=== PATIENT | female | born 1985 | race American Indian/Alaskan Native ===

== ENCOUNTER 2017-03-20 14:59 | Emergency (ER) | payer BC, MEDICAID ==
[2017-03-20 15:55] VITALS: BP 127/62
[2017-03-20 16:20] LABS: CHLORIDE,CL 104 mmol/L (101-111); SODIUM,NA 137 mmol/L (135-145)
[2017-03-20] MEDS ORDERED: Iopamidol 612 MG/ML 100 ML Bottle IVPUSH ONE (16:26)
[2017-03-20] MEDS ORDERED: Ondansetron 4 MG/2 ML SDV IV ONE (16:28)
[2017-03-20] MEDS ORDERED: Sodium Chloride 0.9% 1,000 ML IV ONE ×2 (16:28→18:09)
[2017-03-20] MEDS ORDERED: Iopamidol 612 MG/ML 50 ML SDV IVPUSH ONE (16:30)
[2017-03-20] MEDS ORDERED: Iopamidol 612 MG/ML 75 ML Bottle IVPUSH ONE (16:34)
[2017-03-20] MEDS ORDERED: HYDROmorphone 1 MG/ML Syringe IVPUSH ONE ×2 (17:04→18:09)
--- NOTE | 2017-03-20 18:24 | EDM.PDOC ---
Scribed by Alycia Seymour 03/20/17 1823 for Teodoro Sánchez PA ED HPI GENERAL MEDICAL PROBLEM - General Chief Complaint: Abdominal Pain Stated Complaint: [id number] STOMACH PAIN APPENDIX? Time Seen by Provider: 03/20/17 16:15 Source of Information: Reports: Patient, RN, RN Notes Reviewed History Limitations: Reports: No Limitations - History of Present Illness INITIAL COMMENTS - FREE TEXT/NARRATIVE: Pain started at 9 a.m. today. She has taken no medications. She has nausea. No vomiting. No bowel or urine problems. Onset: Today Location: Reports: Abdomen Quality: Reports: Ache Severity: Moderate Improves with: Reports: None Worsens with: Reports: None Associated Symptoms: Reports: No Other Symptoms Abdominal Pain Score (Numeric/FACES): 9 - Related Data Allergies Allergy/AdvReac Type Severity Reaction Status Date / Time No Known Allergies Allergy Verified 09/20/15 01:47 Home Meds: Home Meds . [No Known Home Meds] 09/20/15 [History] Past Medical History - Past Health History Medical/Surgical History: Denies Medical/Surgical History Social & Family History - Tobacco Use Smoking Status *Q: Never Smoker Years of Tobacco use: 10 Used Tobacco, but Quit: Yes Month Tobacco Last Used: last year Second Hand Smoke Exposure: No - Alcohol Use Days Per Week of Alcohol Use: 0 - Recreational Drug Use Recreational Drug Use: No ED ROS GENERAL - Review of Systems Review Of Systems: ROS reveals no pertinent complaints other than HPI. ED EXAM, GI/ABD - Physical Exam Exam: See Below Exam Limited By: No Limitations General Appearance: Obese Eyes: Bilateral: Normal Appearance Ears: Normal External Exam, Normal Canal, Hearing Grossly Normal, Normal TMs Nose: Normal Inspection, Normal Mucosa, No Blood Throat/Mouth: Normal Inspection, Normal Lips, Normal Teeth, Normal Gums, Normal Oropharynx, Normal Voice, No Airway Compromise Head: Atraumatic, Normocephalic Neck: Normal Inspection, Supple, Non-Tender, Full Range of Motion Respiratory/Chest: No Respiratory Distress, Lungs Clear, Normal Breath Sounds, No Accessory Muscle Use, Chest Non-Tender Cardiovascular: Normal Peripheral Pulses, Regular Rate, Rhythm, No Edema, No Gallop, No JVD, No Murmur, No Rub GI/Abdominal Exam: Other (Pbese. RightLQ pain. Positive psoas. Positive rebound. ) (Female) Exam: Deferred Rectal (Female) Exam: Deferred Course - Vital Signs Last Recorded V/S: Last Vital Signs Temp 36.2 C 03/20/17 15:20 Pulse 88 03/20/17 15:20 Resp 20 03/20/17 15:20 BP 127/62 03/20/17 15:20 Pulse Ox 100 03/20/17 15:20 - Orders/Labs/Meds Orders: Active Orders 24 hr Category Date Time Status Sodium Chloride 0.9% [Normal Saline] 1,000 ml Med 03/20/17 18:09 Ordered IV .BOLUS Medication Orders Sodium Chloride (Normal Saline) 1,000 mls @ 125 mls/hr IV .BOLUS ONE Stop: 03/21/17 02:08 Last Admin: 03/20/17 18:16 Dose: 125 mls/hr Labs: Laboratory Tests 03/20/17 03/20/17 03/20/17 Range/Units 15:23 15:23 15:23 WBC (5.0-10.0) 10^3/uL RBC (4.2-5.4) 10^6/uL Hgb (12.0-16.0) g/dL Hct (37.0-47.0) % MCV (80-100) fL MCH (27.0-34.0) pg MCHC (33.0-35.0) g/dL Plt Count (150-450) 10^3/uL Neut % (Auto) (42.2-75.2) % Lymph % (Auto) (20.5-50.1) % [place] % (Auto) (2-8) % Eos % (Auto) (1.0-3.0) % Baso % (Auto) (0.0-1.0) % Sodium (135-145) mmol/L Potassium (3.6-5.0) mmol/L Chloride (101-111) mmol/L Carbon Dioxide (21.0-31.0) mmol/L Anion Gap BUN (7-18) mg/dL Creatinine (0.6-1.3) mg/dL Est Cr Clr Drug Dosing mL/min Estimated GFR (MDRD) BUN/Creatinine Ratio Glucose (74-105) mg/dL Calcium (8.4-10.2) mg/dl Total Bilirubin (0.2-1.0) mg/dL AST (10-42) IU/L ALT (10-60) IU/L Alkaline Phosphatase (42-121) IU/L Total Protein (6.7-8.2) g/dl Albumin (3.2-5.5) g/dl Globulin Albumin/Globulin Ratio Urine Color Yellow (YELLOW) Urine Appearance Slightly cloudy (CLEAR) Urine pH 5.5 (5.0-9.0) Ur Specific [place] 1.025 (1.005-1.030) Urine Protein Negative (NEGATIVE) Urine Glucose (UA) Negative (NEGATIVE) Urine Ketones 15 H (NEGATIVE) Urine Occult Blood Negative (NEGATIVE) Urine Nitrite Negative (NEGATIVE) Urine Bilirubin Negative (NEGATIVE) Urine Urobilinogen 0.2 (0.2-1.0) mg/dL Ur Leukocyte Esterase Negative (NEGATIVE) Urine RBC 0-5 /HPF Urine WBC 0-5 (0-5/HPF) /HPF Ur Epithelial Cells Moderate H /HPF Urine Bacteria Rare (0-FEW/HPF) /HPF Urine Mucus Rare /LPF Urine HCG, Qual Negative Urine Opiates Screen Negative (NEGATIVE) Ur Oxycodone Screen Negative (NEGATIVE) Urine Methadone Screen Negative (NEGATIVE) Ur Barbiturates Screen Negative (NEGATIVE) U Tricyclic Antidepress Negative (NEGATIVE) Ur Phencyclidine Scrn Negative (NEGATIVE) Ur Amphetamine Screen Negative (NEGATIVE) U Methamphetamines Scrn Negative (NEGATIVE) Urine MDMA Screen Negative (NEGATIVE) U Benzodiazepines Scrn Negative (NEGATIVE) Urine Cocaine Screen Negative (NEGATIVE) U Marijuana (THC) Screen Negative (NEGATIVE) 03/20/17 03/20/17 Range/Units 15:45 15:45 WBC 14.3 H (5.0-10.0) 10^3/uL RBC 4.49 (4.2-5.4) 10^6/uL Hgb 11.6 L D (12.0-16.0) g/dL Hct 37.1 (37.0-47.0) % MCV 82.6 D (80-100) fL MCH 25.8 L (27.0-34.0) pg MCHC 31.3 L (33.0-35.0) g/dL Plt Count 275 (150-450) 10^3/uL Neut % (Auto) 80.0 H (42.2-75.2) % Lymph % (Auto) 11.9 L (20.5-50.1) % [place] % (Auto) 6.0 (2-8) % Eos % (Auto) 2.0 (1.0-3.0) % Baso % (Auto) 0.1 (0.0-1.0) % Sodium 137 (135-145) mmol/L Potassium 3.6 (3.6-5.0) mmol/L Chloride 104 (101-111) mmol/L Carbon Dioxide 22.0 (21.0-31.0) mmol/L Anion Gap 14.6 BUN 11 (7-18) mg/dL Creatinine 0.5 L (0.6-1.3) mg/dL Est Cr Clr Drug Dosing 167.47 mL/min Estimated GFR (MDRD) > 60 BUN/Creatinine Ratio 22.00 Glucose 109 H (74-105) mg/dL Calcium 8.4 (8.4-10.2) mg/dl Total Bilirubin 0.7 (0.2-1.0) mg/dL AST 25 (10-42) IU/L ALT 30 (10-60) IU/L Alkaline Phosphatase 53 (42-121) IU/L Total Protein 7.7 (6.7-8.2) g/dl Albumin 3.8 (3.2-5.5) g/dl Globulin 3.9 Albumin/Globulin Ratio 0.97 Urine Color (YELLOW) Urine Appearance (CLEAR) Urine pH (5.0-9.0) Ur Specific [place] (1.005-1.030) Urine Protein (NEGATIVE) Urine Glucose (UA) (NEGATIVE) Urine Ketones (NEGATIVE) Urine Occult Blood (NEGATIVE) Urine Nitrite (NEGATIVE) Urine Bilirubin (NEGATIVE) Urine Urobilinogen (0.2-1.0) mg/dL Ur Leukocyte Esterase (NEGATIVE) Urine RBC /HPF Urine WBC (0-5/HPF) /HPF Ur Epithelial Cells /HPF Urine Bacteria (0-FEW/HPF) /HPF Urine Mucus /LPF Urine HCG, Qual Urine Opiates Screen (NEGATIVE) Ur Oxycodone Screen (NEGATIVE) Urine Methadone Screen (NEGATIVE) Ur Barbiturates Screen (NEGATIVE) U Tricyclic Antidepress (NEGATIVE) Ur Phencyclidine Scrn (NEGATIVE) Ur Amphetamine Screen (NEGATIVE) U Methamphetamines Scrn (NEGATIVE) Urine MDMA Screen (NEGATIVE) U Benzodiazepines Scrn (NEGATIVE) Urine Cocaine Screen (NEGATIVE) U Marijuana (THC) Screen (NEGATIVE) Meds: Medications Generic Name Dose Route Start Last Admin Trade Name Freq PRN Reason Stop Dose Admin Sodium Chloride 1,000 mls @ 125 mls/hr 03/20/17 18:09 03/20/17 18:16 Normal Saline IV 03/21/17 02:08 125 mls/hr .BOLUS ONE Administration Discontinued Medications Generic Name Dose Route Start Last Admin Trade Name Freq PRN Reason Stop Dose Admin Hydromorphone HCl 0.5 mg 03/20/17 17:04 03/20/17 17:12 Dilaudid IVPUSH 03/20/17 17:05 0.5 mg ONETIME ONE Administration Hydromorphone HCl 0.5 mg 03/20/17 18:09 03/20/17 18:15 Dilaudid IVPUSH 03/20/17 18:10 0.5 mg ONETIME ONE Administration Sodium Chloride 1,000 mls @ 999 mls/hr 03/20/17 16:28 03/20/17 17:09 Normal Saline IV 03/20/17 17:28 999 mls/hr .BOLUS ONE Administration Iopamidol 100 ml 03/20/17 16:26 Isovue-300 (61%) IVPUSH 03/20/17 16:27 ONETIME ONE Iopamidol 50 ml 03/20/17 16:30 03/20/17 16:47 Isovue-300 (61%) IVPUSH 03/20/17 16:31 50 ml ONETIME ONE Administration Iopamidol 75 ml 03/20/17 16:34 03/20/17 16:47 Isovue-300 (61%) IVPUSH 03/20/17 16:35 75 ml ONETIME ONE Administration Ondansetron HCl 4 mg 03/20/17 16:28 03/20/17 17:09 Zofran IV 03/20/17 16:29 4 mg ONETIME ONE Administration Departure - Departure Time of Disposition: 18:21 Disposition: DC/Tfer to Acute Hospital 02 Condition: Poor Clinical Impression: Acute appendicitis Qualifiers: Acute appendicitis type: with localized peritonitis Qualified Code(s): K35.3 - Acute appendicitis with localized peritonitis - Discharge Information Forms: Interfacility Transfer EMTALA Care Plan Goals: Discussed the examination, lab and CT results with Iliana (results relayed to Dr. Eric). Dr. Eric accepted the patient for continued evaluation and management. The patient will be transported by [facility]. - My Orders Last 24 Hours: My Active Orders 03/20/17 18:09 Sodium Chloride 0.9% [Normal Saline] 1,000 ml IV .BOLUS - Assessment/Plan Last 24 Hours: My Active Orders 03/20/17 18:09 Sodium Chloride 0.9% [Normal Saline] 1,000 ml IV .BOLUS I have read and agree with the documentation that has been completed regarding this visit. By signing this record, I attest that the documentation was completed in my physical presence and is an accurate record of the encounter.
== END 2017-03-20 18:55 ==
LOC: DL.ED 14:59
DX: K35.3 Acute appendicitis with localized peritonitis (principal)
CPT/HCPCS: 36415; 74177; 80053; 80305; 81001; 81025; 85025; 96361; 96374; 96375; 96376; 99285; J1170; J2405; J7030; Q9967

== ENCOUNTER 2018-07-25 16:40 | Emergency (ER) | payer BC, MEDICAID ==
[2018-07-25 16:50] VITALS: BP 159/86
--- NOTE | 2018-07-25 17:26 | EDM.PDOC ---
ED HPI GENERAL MEDICAL PROBLEM - General Chief Complaint: Cardiovascular Problem Stated Complaint: DIZZY,FATIGUES,HEARTFAST, [id number] Time Seen by Provider: 07/25/18 17:19 Source of Information: Reports: Patient History Limitations: Reports: No Limitations - History of Present Illness INITIAL COMMENTS - FREE TEXT/NARRATIVE: Patient has been having dizziness, increased heart beat, palpitations today. Yesterday she went somewhere to check her BP and it was very high. Someone told her she should go to the clinic and see someone, but she didn't go in. Patient is unsure if her symptoms are from being nervous about the high BP or if it's something else. Sometimes her heart feels fluttery and that's when she gets a high heart rate. She checks her heart rate multiple times per day. Patient has had shoulder, neck and chest pain for 3 months. It's an achy pain that is always there. About once per week she gets a sharp pain in one of those areas. She's tried taking Tylenol and using Icy Hot neither have helped. Onset: Today Location: Reports: Neck, Chest, Upper Extremity, Left, Upper Extremity, Right Severity: Mild Associated Symptoms: Denies: Diaphoresis, Nausea/Vomiting Generalized Pain Score (Numeric/FACES): 5 - Related Data Allergies Allergy/AdvReac Type Severity Reaction Status Date / Time No Known Allergies Allergy Verified 07/25/18 16:50 Home Meds: Home Meds Acetaminophen [Tylenol Extra Strength] 1,000 mg 07/25/18 [History] Ibuprofen 600 mg PO 07/25/18 [History] Past Medical History - Past Health History Medical/Surgical History: Denies Medical/Surgical History Cardiovascular History: Reports: Other (See Below) Other Cardiovascular History: hypertension with [employer] History: Reports: - Past Surgical History GI Surgical History: Reports: Appendectomy Social & Family History - Family History Family Medical History: Noncontributory - Tobacco Use Smoking Status *Q: Never Smoker Second Hand Smoke Exposure: No - Caffeine Use Caffeine Use: Reports: Coffee, Soda - Recreational Drug Use Recreational Drug Use: No ED ROS GENERAL - Review of Systems Review Of Systems: See Below Constitutional: Reports: No Symptoms HEENT: Reports: No Symptoms Respiratory: Reports: No Symptoms Cardiovascular: Reports: Blood Pressure Problem, Lightheadedness, Palpitations Endocrine: Reports: No Symptoms GI/Abdominal: Reports: No Symptoms : Reports: No Symptoms Musculoskeletal: Reports: Neck Pain, Shoulder Pain, Arm Pain, Other (chest pain) Skin: Reports: No Symptoms Neurological: Reports: Dizziness Psychiatric: Reports: Anxiety (never been diagnosed, but sometimes she wonders about it. She does not have any stress in her life. ) ED EXAM, GENERAL - Physical Exam Exam: See Below Exam Limited By: No Limitations General Appearance: Alert, WD/WN, No Apparent Distress, Obese Ear Exam: Bilateral Ear: Auricle Normal, Canal Normal, TM normal Nose: Normal Inspection, Normal Mucosa, No Blood Throat/Mouth: Normal Inspection, Normal Lips, Normal Teeth, Normal Gums, Normal Oropharynx, Normal Voice, No Airway Compromise Head: Atraumatic, Normocephalic Neck: Normal Inspection, Supple, Non-Tender, Full Range of Motion. No: Lymphadenopathy (L), Lymphadenopathy (R), Thyromegaly Respiratory/Chest: No Respiratory Distress, Lungs Clear, Normal Breath Sounds, No Accessory Muscle Use Cardiovascular: Regular Rate, Rhythm, No Murmur, Other (pitting edema) GI/Abdominal: Normal Bowel Sounds, Soft, Non-Tender, No Organomegaly, No Distention, Other (increased abdominal girth making exam difficult) (Female) Exam: Deferred Rectal (Female) Exam: Deferred Neurological: Alert, Oriented, Normal Cognition Psychiatric: Normal Affect, Normal Mood Skin Exam: Warm, Dry, Intact, Normal Color, No Rash Lymphatic: No Adenopathy Course - Vital Signs Last Recorded V/S: Last Vital Signs Temp 97.7 F 07/25/18 16:45 Pulse 90 07/25/18 16:45 Resp 19 07/25/18 16:45 BP 159/86 H 07/25/18 16:45 Pulse Ox 99 07/25/18 16:45 - Orders/Labs/Meds Labs: Laboratory Tests 07/25/18 07/25/18 07/25/18 Range/Units 17:21 17:21 17:21 WBC (5.0-10.0) 10^3/uL RBC (4.2-5.4) 10^6/uL Hgb (12.0-16.0) g/dL Hct (37.0-47.0) % MCV (80-100) fL MCH (27.0-34.0) pg MCHC (33.0-35.0) g/dL Plt Count (150-450) 10^3/uL Neut % (Auto) (42.2-75.2) % Lymph % (Auto) (20.5-50.1) % [place] % (Auto) (2-8) % Eos % (Auto) (1.0-3.0) % Baso % (Auto) (0.0-1.0) % Sodium (135-145) mmol/L Potassium (3.6-5.0) mmol/L Chloride (101-111) mmol/L Carbon Dioxide (21.0-31.0) mmol/L Anion Gap BUN (7-18) mg/dL Creatinine (0.6-1.3) mg/dL Est Cr Clr Drug Dosing mL/min Estimated GFR (MDRD) BUN/Creatinine Ratio Glucose (74-105) mg/dL Calcium (8.4-10.2) mg/dl Total Bilirubin (0.2-1.0) mg/dL AST (10-42) IU/L ALT (10-60) IU/L Alkaline Phosphatase (42-121) IU/L Total Protein (6.7-8.2) g/dl Albumin (3.2-5.5) g/dl Globulin Albumin/Globulin Ratio Urine Color Yellow (YELLOW) Urine Appearance Slightly cloudy (CLEAR) Urine pH 6.5 (5.0-9.0) Ur Specific [place] 1.010 (1.005-1.030) Urine Protein Negative (NEGATIVE) Urine Glucose (UA) Negative (NEGATIVE) Urine Ketones Negative (NEGATIVE) Urine Occult Blood Negative (NEGATIVE) Urine Nitrite Negative (NEGATIVE) Urine Bilirubin Negative (NEGATIVE) Urine Urobilinogen 0.2 (0.2-1.0) mg/dL Ur Leukocyte Esterase Negative (NEGATIVE) Urine HCG, Qual Negative Urine Opiates Screen Negative (NEGATIVE) Ur Oxycodone Screen Negative (NEGATIVE) Urine Methadone Screen Negative (NEGATIVE) Ur Barbiturates Screen Negative (NEGATIVE) U Tricyclic Antidepress Negative (NEGATIVE) Ur Phencyclidine Scrn Negative (NEGATIVE) Ur Amphetamine Screen Negative (NEGATIVE) U Methamphetamines Scrn Negative (NEGATIVE) Urine MDMA Screen Negative (NEGATIVE) U Benzodiazepines Scrn Negative (NEGATIVE) Urine Cocaine Screen Negative (NEGATIVE) U Marijuana (THC) Screen Negative (NEGATIVE) 07/25/18 07/25/18 Range/Units 17:27 17:27 WBC 12.1 H (5.0-10.0) 10^3/uL RBC 4.70 (4.2-5.4) 10^6/uL Hgb 11.9 L (12.0-16.0) g/dL Hct 37.9 (37.0-47.0) % MCV 80.6 (80-100) fL MCH 25.3 L (27.0-34.0) pg MCHC 31.4 L (33.0-35.0) g/dL Plt Count 305 (150-450) 10^3/uL Neut % (Auto) 69.0 (42.2-75.2) % Lymph % (Auto) 20.6 (20.5-50.1) % [place] % (Auto) 6.6 (2-8) % Eos % (Auto) 3.7 H (1.0-3.0) % Baso % (Auto) 0.1 (0.0-1.0) % Sodium 136 (135-145) mmol/L Potassium 3.6 (3.6-5.0) mmol/L Chloride 101 (101-111) mmol/L Carbon Dioxide 23.0 (21.0-31.0) mmol/L Anion Gap 15.6 BUN 10 (7-18) mg/dL Creatinine 0.5 L (0.6-1.3) mg/dL Est Cr Clr Drug Dosing 159.99 mL/min Estimated GFR (MDRD) > 60 BUN/Creatinine Ratio 20.00 Glucose 90 (74-105) mg/dL Calcium 9.0 (8.4-10.2) mg/dl Total Bilirubin 1.0 (0.2-1.0) mg/dL AST 51 H (10-42) IU/L ALT 52 (10-60) IU/L Alkaline Phosphatase 57 (42-121) IU/L Total Protein 8.1 (6.7-8.2) g/dl Albumin 4.0 (3.2-5.5) g/dl Globulin 4.1 Albumin/Globulin Ratio 0.98 Urine Color (YELLOW) Urine Appearance (CLEAR) Urine pH (5.0-9.0) Ur Specific [place] (1.005-1.030) Urine Protein (NEGATIVE) Urine Glucose (UA) (NEGATIVE) Urine Ketones (NEGATIVE) Urine Occult Blood (NEGATIVE) Urine Nitrite (NEGATIVE) Urine Bilirubin (NEGATIVE) Urine Urobilinogen (0.2-1.0) mg/dL Ur Leukocyte Esterase (NEGATIVE) Urine HCG, Qual Urine Opiates Screen (NEGATIVE) Ur Oxycodone Screen (NEGATIVE) Urine Methadone Screen (NEGATIVE) Ur Barbiturates Screen (NEGATIVE) U Tricyclic Antidepress (NEGATIVE) Ur Phencyclidine Scrn (NEGATIVE) Ur Amphetamine Screen (NEGATIVE) U Methamphetamines Scrn (NEGATIVE) Urine MDMA Screen (NEGATIVE) U Benzodiazepines Scrn (NEGATIVE) Urine Cocaine Screen (NEGATIVE) U Marijuana (THC) Screen (NEGATIVE) Departure - Departure Time of Disposition: 18:03 Disposition: Home, Self-Care 01 Condition: Good Clinical Impression: Palpitations, Anxiety about health Forms: ED Department Discharge Care Plan Goals: Discussed normal lab findings and BP's with patient. Patient was happy to hear there was nothing abnormal. Advised patient to set up an appointment with a primary care provider. If symptoms worsen or continue call primary sooner.
[2018-07-25 17:53] LABS: ANION GAP 15.6; CHLORIDE,CL 101 mmol/L (101-111); SODIUM,NA 136 mmol/L (135-145)
== END 2018-07-25 18:14 | disposition home or self-care (01) ==
LOC: DL.ED 16:40
DX: F41.9 Anxiety disorder, unspecified (principal); Z90.49 Acquired absence of other specified parts of digestive tract
CPT/HCPCS: 36415; 80053; 80305-QW; 81003; 81025; 85025; 99284

== ENCOUNTER 2023-04-25 09:15 | Emergency (ER) | payer BC ==
[2023-04-25 10:10] LABS: APPEARANCE,URINE CLEAR (CLEAR); BILIRUBIN,URINE NEGATIVE (NEGATIVE); COLOR,URINE YELLOW (YELLOW); GLUCOSE,URINE NEGATIVE (NEGATIVE); KETONES,URINE NEGATIVE (NEGATIVE); LEUKOCYTE ESTERASE,URINE NEGATIVE (NEGATIVE); NITRITE,URINE NEGATIVE (NEGATIVE); OCCULT BLOOD,URINE NEGATIVE (NEGATIVE); PH,URINE 5.5 (5.0-9.0); PROTEIN,URINE NEGATIVE (NEGATIVE); UROBILINOGEN,URINE 0.2 mg/dL (0.2-1.0)
[2023-04-25 10:12] LABS: AMPHETAMINES,URINE NEGATIVE (NEGATIVE); BARBITURATES,URINE NEGATIVE (NEGATIVE); BENZODIAZEPINE,URINE NEGATIVE (NEGATIVE); MDMA (ECSTASY), URINE NEGATIVE (NEGATIVE); METHADONE,URINE NEGATIVE (NEGATIVE); METHAMPHETAMINES,URINE NEGATIVE (NEGATIVE); OPIATES,URINE NEGATIVE (NEGATIVE); OXYCODONE,URINE NEGATIVE (NEGATIVE); PHENCYCLIDINE,URINE NEGATIVE (NEGATIVE); TCA,URINE NEGATIVE (NEGATIVE)
[2023-04-25 10:16] LABS: BASOPHILS PERCENT AUTO 0.1 % (0.0-1.0); HEMATOCRIT 37.1 % (37.0-47.0); HEMOGLOBIN 11.5 g/dL (12.0-16.0); LYMPHOCYTES PERCENT AUTO 20.4 % (20.5-50.1); MEAN CORPUSCULAR HEMOGLOBIN 25.7 pg (27.0-34.0); MEAN CORPUSCULAR VOLUME 82.8 fL (80-100); NEUTROPHILS PERCENT AUTO 67.5 % (42.2-75.2); PLATELET COUNT,PLT 300 10^3/uL (150-450); RED BLOOD CELL COUNT 4.48 10^6/uL (4.2-5.4); WHITE BLOOD CELL COUNT,WBC 13.7 10^3/uL (5.0-10.0)
[2023-04-25] MEDS ORDERED: Aluminum Hydroxide/Magnesium Hydroxide/Simethicone Susp 30 ML Cup PO ONE (10:30)
[2023-04-25 10:39] LABS: A/G RATIO 0.8; ALANINE AMINOTRANSFERASE,ALT 39 U/L (14-59); ALBUMIN 3.4 g/dL (3.4-5.0); ALKALINE PHOSPHATASE 58 U/L (46-116); ANION GAP 9.4 mEq/L (7-13); ASPARTATE AMNIOTRANSFERASE,AST 24 U/L (15-37); BILIRUBIN TOTAL 0.5 mg/dL (0.2-1.0); BLOOD UREA NITROGEN,BUN 12 mg/dL (7-18); C-REACTIVE PROTEIN 1.61 ng/dL (<=0.50); CALCIUM 8.5 mg/dL (8.5-10.1); CARBON DIOXIDE,CO2 28 mmol/L (21-32); CHLORIDE,CL 103 mmol/L (98-107); EST CRCL DRUG DOSING (CG) 91.88 mL/min; GLUCOSE RANDOM 125 mg/dL (70-99); LIPASE 27 U/L (16-77); MAGNESIUM 1.8 mg/dL (1.8-2.4); POTASSIUM,K 3.4 mmol/L (3.5-5.1); PROTEIN TOTAL,TP 7.8 g/dL (6.4-8.2); SODIUM,NA 137 mmol/L (136-145)
[2023-04-25 10:40] LABS: LACTIC ACID 1.3 mmol/L (0.4-2.0)
[2023-04-25 10:42] LABS: ESTIMATED GFR 98 mL/min (>=60); ETHANOL BLOOD MEDICAL < 3 mg/dL (0)
[2023-04-25 10:45] LABS: HCG QUALITATIVE,SERUM NEGATIVE (NEGATIVE)
[2023-04-25 11:16] VITALS: BP 122/73; PULSE 68
== END 2023-04-25 11:07 | disposition home or self-care (01) ==
LOC: DL.ED 09:15
DX: K59.01 Slow transit constipation (principal); I10 Essential (primary) hypertension; E11.9 Type 2 diabetes mellitus without complications; Z79.84 Long term (current) use of oral hypoglycemic drugs; E66.9 Obesity, unspecified; Z68.30 Body mass index [BMI] 30.0-30.9, adult; Z90.49 Acquired absence of other specified parts of digestive tract; Z79.899 Other long term (current) drug therapy
CPT/HCPCS: 36415; 80053; 80305-QW; 80307; 81003; 83605; 83690; 83735; 84484; 84703; 85025; 86140; 93005; 93010; 99284; A9270-GY

== ENCOUNTER 2023-07-21 20:02 | Emergency (ER) | payer BC ==
[2023-07-21] MEDS: Oxymetazoline 0.05% Nasal Spray 30 ML Bottle NAS ONE (20:22)
[2023-07-21] MEDS: Ketorolac 30 MG/ML SDV IM ONE (20:23)
[2023-07-21 20:45] VITALS: BP 155/89; PULSE 84
== END 2023-07-21 20:42 | disposition home or self-care (01) ==
LOC: DL.ED 20:02
DX: J06.9 Acute upper respiratory infection, unspecified (principal); I10 Essential (primary) hypertension; E11.9 Type 2 diabetes mellitus without complications; E66.9 Obesity, unspecified; Z79.85 Long-term (current) use of injectable non-insulin antidiabetic drugs; Z79.899 Other long term (current) drug therapy; Z68.44 Body mass index [BMI] 60.0-69.9, adult
CPT/HCPCS: 96372; 99283; A9270; J1885